=== PATIENT | female | born 1950 | race Hispanic/Latino ===

== ENCOUNTER → 2022-02-14 | Day surgery (SDC) | payer BC, MEDICARE ==
[2022-02-11 12:51] LABS: BASOPHILS # (AUTO) 0.1 (0.0-0.1); BASOPHILS % 0.4 % (0.0-1.0); EOSINOPHILS # (AUTO) 0.1 (0.0-0.4); EOSINOPHILS % 0.9 % (0.0-6.0); HEMATOCRIT 45.1 % (34.2-44.1); HEMOGLOBIN 14.9 g/dL (12.0-16.0); LYMPHOCYTES # (AUTO) 3.9 (1.0-3.2); LYMPHOCYTES % 26.2 % (18.0-39.1); MEAN CORPUSCULAR HEMOGLOBIN 29.6 pg (28-32); MEAN CORPUSCULAR VOLUME 89.5 fL (81-99); MONOCYTES % 6.9 % (4.4-11.3); NEUTROPHILS # (AUTO) 9.6 (2.1-6.9); NEUTROPHILS % 64.8 % (38.7-80.0); PLATELET COUNT 410 x10e3/uL (140-360); RED BLOOD COUNT 5.04 x10e6/uL (3.6-5.1); RED CELL DISTRIBUTION WIDTH 13.8 % (11.7-14.4)
[~2022-02-14] MED LIST: ADVIL PO; AMLODIPINE BESY10 MG PO; ASPIR 8181 MG PO; ATORVASTATIN CA10 MG PO; FENTANYL CITRATE/PF 100MCG/2 ML INJ ONE; HYDROCHLOROTH12.5 M1 PO; HYOSCYAMINE SULFATE 0.5 MG/ML INJ ONE; MELOXICAM7.5 MG PO; MIDAZOLAM HCL 2 MG/2 ML VIAL ONE; NEXIUM40 MG PO; OLMESARTAN-HCT1 EAC1 PO; ONDANSETRON HCL INJ 2MG/ML 2ML 2 MG/ML VIAL ONE; PREDNISONE10 MG PO; PREMPRO 0.3 MG1 EACH PO; PROPOFOL IV EMULSION 10 MG/ML 20 ML VIAL ONE; VITAMIN D PO; [UNRECOGNIZED DRUG - OTHER] PO
[2022-02-14 11:45] VITALS: BP 111/49
== END | disposition home or self-care (01) ==
LOC: OR 06:22
PROVIDERS: ATTEND Internal Medicine Gastroenterology
DX: R19.5 Other fecal abnormalities (principal); D12.2 Benign neoplasm of ascending colon; D12.4 Benign neoplasm of descending colon; D12.8 Benign neoplasm of rectum; K57.30 Diverticulosis of large intestine without perforation or abscess without bleeding; K64.8 Other hemorrhoids; K21.9 Gastro-esophageal reflux disease without esophagitis; Z71.3 Dietary counseling and surveillance; I10 Essential (primary) hypertension; E78.00 Pure hypercholesterolemia, unspecified; Z01.810 Encounter for preprocedural cardiovascular examination; Z01.812 Encounter for preprocedural laboratory examination; Z20.822 Contact with and (suspected) exposure to COVID-19; Z79.82 Long term (current) use of aspirin; Z79.899 Other long term (current) drug therapy; Z68.38 Body mass index [BMI] 38.0-38.9, adult; Z86.73 Personal history of transient ischemic attack (TIA), and cerebral infarction without residual deficits
CPT/HCPCS: 0223U; 36415; 45380; 45385; 85025; 93005; J1980; J2250; J2405; J2704; J3010; 45378

== ENCOUNTER 2024-11-23 18:29 | Observation (INO) | payer MEDICARE ==
[~2024-11-23] VITALS: Ht 165.1 cm; Wt 98.5 kg
[~2024-11-23 18:29] MED LIST changes: -FENTANYL CITRATE/PF 100MCG/2 ML INJ ONE; -HYOSCYAMINE SULFATE 0.5 MG/ML INJ ONE; -MIDAZOLAM HCL 2 MG/2 ML VIAL ONE; -ONDANSETRON HCL INJ 2MG/ML 2ML 2 MG/ML VIAL ONE; -PROPOFOL IV EMULSION 10 MG/ML 20 ML VIAL ONE
[2024-11-23] MEDS ORDERED: ELIQUIS5 MG PO (18:53)
[2024-11-23] MEDS ORDERED: AMIODARONE HCL200 MG PO (18:53)
[2024-11-23 19:29] LABS: BASOPHILS % 0.4 % (0.0-1.0); EOSINOPHILS # (AUTO) 0.1 (0.0-0.4); EOSINOPHILS % 0.8 % (0.0-6.0); HEMATOCRIT 44.7 % (34.2-44.1); HEMOGLOBIN 15.3 g/dL (12.0-16.0); LYMPHOCYTES # (AUTO) 1.7 (1.0-3.2); LYMPHOCYTES % 21.5 % (18.0-39.1); MEAN CORPUSCULAR HEMOGLOBIN 28.9 pg (28-32); MEAN CORPUSCULAR HGB CONC 34.2 g/dL (31-35); MEAN CORPUSCULAR VOLUME 84.5 fL (81-99); MONOCYTES # (AUTO) 0.5 (0.2-0.8); MONOCYTES % 6.4 % (4.4-11.3); NEUTROPHILS # (AUTO) 5.7 (2.1-6.9); NEUTROPHILS % 70.6 % (38.7-80.0); PLATELET COUNT 364 x10e3/uL (140-360); RED BLOOD COUNT 5.29 x10e6/uL (3.6-5.1); RED CELL DISTRIBUTION WIDTH 14.1 % (11.7-14.4)
[2024-11-23 19:53] LABS: ALANINE AMINOTRANSFERASE 27 IU/L (0-55); ALBUMIN 4.4 g/dL (3.5-5.0); ALKALINE PHOSPHATASE 102 IU/L (40-150); BILIRUBIN,TOTAL 0.3 mg/dL (0.2-1.2); BLOOD UREA NITROGEN 14 mg/dL (7-26); BUN/CREATININE RATIO 19 (6-25); CARBON DIOXIDE 23 mmol/L (22-29); CHLORIDE 104 mmol/L (98-107); CREATINE KINASE 79 IU/L (29-168); CREATININE, SERUM 0.73 mg/dL (0.57-1.11); EST GLOMERULAR FILTRATION RATE 87 ML/MIN (>=60); GLUCOSE 100 mg/dL (74-118); SODIUM 141 mmol/L (136-145); TOTAL PROTEIN 8.6 g/dL (6.5-8.1)
[2024-11-23 20:01] LABS: TROPONIN I < 0.001 ng/mL (0-0.300)
[2024-11-23] MEDS ORDERED: ONDANSETRON HCL INJ 2MG/ML 2ML 2 MG/ML VIAL IV PRN (20:30)
[2024-11-23] MEDS ORDERED: Morphine 4mg INJECTION 4 MG/ML INJ IV PRN (20:30)
[2024-11-23] MEDS ORDERED: SODIUM CHLORIDE FLUSH 10 ML SYR INJ PRN (20:30)
[2024-11-23 21:15] VITALS: PULSE 71; RESP 18; TEMP 98.9
[2024-11-23 21:48] VITALS: BP 134/60; PULSE 74; RESP 18; TEMP 98.1; O2SAT 97
[2024-11-23 22:32] VITALS: BP 134/60; PULSE 74; RESP 18; TEMP 98.1; O2SAT 97
[2024-11-23 23:00] VITALS: BP 135/60; PULSE 74; RESP 18; TEMP 98.1; O2SAT 97
[2024-11-23] MEDS: AMIODARONE HCL 200 MG TAB PO ONE (23:46)
[2024-11-23] MEDS: APIXABAN 5 MG TABLET PO ONE (23:46)
[2024-11-23] MEDS: ATORVASTATIN 10 MG TAB PO ONE (23:47)
[2024-11-24] VITALS: BP 135/66; PULSE 71; RESP 18; TEMP 97.5; O2SAT 96
[2024-11-24 00:13] VITALS: BP 134/60; PULSE 74; RESP 18; TEMP 98.1; O2SAT 97
[2024-11-24 05:39] LABS: BASOPHILS % 0.4 % (0.0-1.0); EOSINOPHILS # (AUTO) 0.1 (0.0-0.4); EOSINOPHILS % 1.4 % (0.0-6.0); HEMATOCRIT 38.7 % (34.2-44.1); HEMOGLOBIN 13.1 g/dL (12.0-16.0); LYMPHOCYTES # (AUTO) 2.5 (1.0-3.2); LYMPHOCYTES % 27.3 % (18.0-39.1); MEAN CORPUSCULAR HEMOGLOBIN 29.1 pg (28-32); MEAN CORPUSCULAR HGB CONC 33.9 g/dL (31-35); MONOCYTES # (AUTO) 0.8 (0.2-0.8); MONOCYTES % 9.2 % (4.4-11.3); NEUTROPHILS # (AUTO) 5.6 (2.1-6.9); NEUTROPHILS % 61.5 % (38.7-80.0); PLATELET COUNT 336 x10e3/uL (140-360); RED CELL DISTRIBUTION WIDTH 14.1 % (11.7-14.4); WHITE BLOOD COUNT 9.13 x10e3/uL (4.8-10.8)
[2024-11-24 05:47] VITALS: BP 133/50; PULSE 65; RESP 16; TEMP 97.9; O2SAT 98
[2024-11-24 06:07] LABS: ALBUMIN 3.6 g/dL (3.5-5.0); ALBUMIN/GLOBULIN RATIO 1.1 (0.8-2.0); ANION GAP 16.6 mmol/L (8-16); BILIRUBIN,TOTAL 0.3 mg/dL (0.2-1.2); CALCIUM 9.3 mg/dL (8.4-10.2); CREATININE, SERUM 0.67 mg/dL (0.57-1.11); POTASSIUM 3.6 mmol/L (3.5-5.1)
[2024-11-24 06:25] LABS: TROPONIN I 0.001 ng/mL (0-0.300)
[2024-11-24 08:00] VITALS: BP 144/58; PULSE 66; RESP 18; TEMP 97.9; O2SAT 97
[2024-11-24] MEDS ORDERED: NON-FORMULARY MEDICATION ([Vitamin D] 50,000 UNITS) PO SCH (09:00)
[2024-11-24] MEDS: PANTOPRAZOLE SOD 40 MG TABEC PO SCH (10:34)
[2024-11-24] MEDS: APIXABAN 5 MG TABLET PO SCH (10:35)
[2024-11-24] MEDS: AMLODIPINE BESYLATE 10 MG TAB PO SCH (10:35)
[2024-11-24] MEDS: AMIODARONE HCL 200 MG TAB PO SCH (10:35)
[2024-11-24 15:00] VITALS: BP 137/52; PULSE 71; RESP 19; TEMP 97.7; O2SAT 97
[2024-11-24] MEDS ORDERED: ATORVASTATIN 10 MG TAB PO SCH (21:00)
== END 2024-11-24 16:55 | disposition home or self-care (01) ==
LOC: ER 18:39 → ERHOLD 20:34 → MED/SURG2 21:29
PROVIDERS: ADMIT Internal Medicine; ATTEND Internal Medicine
DX: R07.89 Other chest pain (principal); R51.9 Headache, unspecified; Z79.01 Long term (current) use of anticoagulants; I10 Essential (primary) hypertension; E78.5 Hyperlipidemia, unspecified; K21.9 Gastro-esophageal reflux disease without esophagitis; I48.0 Paroxysmal atrial fibrillation; I34.1 Nonrheumatic mitral (valve) prolapse
CPT/HCPCS: 36415 ×2; 71045; 80053 ×2; 82550 ×2; 83690; 83880; 84484 ×2; 85025 ×2; 93005; 93306; 99284; G0378 ×2; J2470